=== PATIENT | male | born 1975 | race Two or more races ===

== ENCOUNTER 2021-10-16 15:36 | Emergency (ER) | payer OTHER ==
[~2021-10-16] VITALS: Ht 165.1 cm; Wt 73.5 kg
[2021-10-16 16:03] VITALS: BP 147/102
[2021-10-16] MEDS ORDERED: INDOMETHACIN 25 MG CAP PO ONE (20:35)
[2021-10-16] MEDS ORDERED: KETOROLAC 30 MG/ML VIAL IM ONE (21:10)
[2021-10-16] MEDS ORDERED: INDO-323 PO (22:25)
[2021-10-16 23:00] VITALS: BP 147/102
== END 2021-10-16 23:00 | disposition home or self-care (01) ==
LOC: MED 15:36
DX: M10.071 Idiopathic gout, right ankle and foot (principal); Z79.899 Other long term (current) drug therapy
CPT/HCPCS: 73630; 96372; 99283; J1885